=== PATIENT | female | born 1975 | race Caucasian/White ===

== ENCOUNTER 2018-06-10 08:29 | Emergency (ER) | payer OTHER, MEDICAID ==
[~2018-06-10] VITALS: Ht 180.3 cm; Wt 81.7 kg
[~2018-06-10 08:29] MED LIST: XANAX 0.5 MG0.5 MG PO
[2018-06-10 08:47] LABS: URINE BILIRUBIN NEGATIVE (Negative); URINE BLOOD NEGATIVE (Negative); URINE CLARITY CLEAR; URINE COLOR YELLOW; URINE GLUCOSE-RANDOM NEGATIVE (Negative); URINE KETONES NEGATIVE (Negative); URINE LEUKOCYTES-REFLEX NEGATIVE (Negative); URINE NITRITE-REFLEX NEGATIVE (Negative); URINE PROTEIN NEGATIVE (Negative); URINE SPECIFIC GRAVITY 1.015 (1.005-1.030); URINE UROBILINOGEN 0.2 E.U./dl (0.2-1.0)
[2018-06-10 08:58] LABS: HEMATOCRIT 40.8 % (37.0-47.0); HEMOGLOBIN 13.8 gm/dL (12.0-15.0); MCH 31.5 pg (26.0-34.0); MCHC 33.9 g/dL (28.0-37.0); MCV 92.8 fL (80.0-100.0); RBC 4.39 mil/uL (4.20-5.00); RDW-CV 13.9 % (10.5-14.5); WBC 13.5 thou/uL (4.0-11.0)
[2018-06-10] MEDS ORDERED: LATUDA20 MG PO (08:58)
[2018-06-10] MEDS ORDERED: BUSPAR30 MG PO (08:58)
[2018-06-10] MEDS ORDERED: HYDROXYZINE HCL25 M1 PO (08:58)
[2018-06-10] MEDS ORDERED: PRAZOSIN 1 MG CA1 M1 PO (09:02)
[2018-06-10 09:05] LABS: CALCIUM 8.7 mg/dL (8.5-10.1); CREATININE 0.8 mg/dL (0.6-1.3)
[2018-06-10 09:25] LABS: INFLUENZA A ANTIGEN None Detected (None Detect); INFLUENZA B ANTIGEN None Detected (None Detect)
[2018-06-10] MEDS ORDERED: BENTYL 20 MG TA20 M1 PO (09:37)
[2018-06-10] MEDS ORDERED: ZOFRAN ODT4 MG DISSOLVE (09:37)
[2018-06-10 09:45] VITALS: BP 146/90
== END 2018-06-10 09:46 | disposition home or self-care (01) ==
LOC: M.ERS 08:29
PROVIDERS: Emergency Medicine Emergency Medical Services
DX: K52.9 Noninfective gastroenteritis and colitis, unspecified (principal); F41.9 Anxiety disorder, unspecified; F32.9 Major depressive disorder, single episode, unspecified; Z90.49 Acquired absence of other specified parts of digestive tract; Z90.710 Acquired absence of both cervix and uterus; F17.210 Nicotine dependence, cigarettes, uncomplicated; Z88.0 Allergy status to penicillin; Z88.1 Allergy status to other antibiotic agents; Z88.2 Allergy status to sulfonamides